=== PATIENT | female | born 1975 | race Caucasian/White ===

== ENCOUNTER 2018-08-11 21:36 | Emergency (ER) | payer BC, SELFPAY ==
[2018-08-11 23:47] LABS: Absolute Lymphocytes (CBC) 2.2 K/uL (0.7-4.9); Absolute Monocytes 0.3 K/uL (0.1-1.3); Absolute Neutrophil 3.8 K/uL (1.8-8.0); Basophils % 0.5 % (0-1.3); Eosinophils % 0.8 % (0-4.4); Hematocrit 35.5 % (36.0-45.0); Lymphocytes % 33.6 % (15.3-44.8); MPV 8.9 fL (7.6-11.3); Monocytes % 5.4 % (3.3-12.3); RBC Red Blood Cell Count 4.15 M/uL (3.86-4.86)
[2018-08-11 23:55] LABS: Potassium 3.5 mmol/L (3.5-5.1)
[2018-08-12 00:26] LABS: Urine Blood 2+ (NEG); Urine Glucose NEGATIVE (NEG); Urine Protein NEGATIVE (NEG); Urine Specific Gravity >1.030 (1.005-1.030); Urine pH 5.5 (5.0-7.0)
[2018-08-12] MEDS ORDERED: CEFTRIAXONE/SWI 1gm 1 GM/10 ML SYR ONE (00:26)
--- NOTE | 2018-08-12 00:29 | EDPHYS ---
Physician Documentation [facility] Name: Yuni Dahl Age: 42 yrs Sex: Female : 1975 Arrival Date: 08/11/2018 Time: 21:40 Bed 30 Private MD: Sean Morin E ED Physician Aftab Deleon HPI: 08/12 00:20 This 42 yrs old Female presents to ER via Ambulatory with complaints of katlyn Vaginal Bleeding. 00:20 The patient presents with vaginal bleeding that is. Onset: The symptoms/episode katlyn began/occurred just prior to arrival. Modifying factors: The symptoms are alleviated by nothing, the symptoms are aggravated by nothing. Associated signs and symptoms: The patient has no apparent associated signs or symptoms. Severity of symptoms: At their worst the symptoms were mild, in the emergency department the symptoms are unchanged. The patient is sexually active, reportedly has a single partner. 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 - Social history:: Smoking status: Patient/guardian denies using tobacco. - Ebola Screening: : Patient negative for fever greater than or equal to 101.5 degrees Fahrenheit, and additional compatible Ebola Virus Disease symptoms Patient denies exposure to infectious person Patient denies travel to an Ebola-affected area in the 21 days before illness onset No symptoms or risks identified at this time. - Family history:: not pertinent. ROS: 08/12 00:20 Constitutional: Negative for fever, chills, and weight loss, Eyes: Negative for injury, katlyn pain, redness, and discharge, ENT: Negative for injury, pain, and discharge, Neck: Negative for injury, pain, and swelling, Cardiovascular: Negative for chest pain, palpitations, and edema, Respiratory: Negative for shortness of breath, cough, wheezing, and pleuritic chest pain, Abdomen/GI: Negative for abdominal pain, nausea, vomiting, diarrhea, and constipation, Back: Negative for injury and pain, MS/Extremity: Negative for injury and deformity, Skin: Negative for injury, rash, and discoloration, Neuro: Negative for headache, weakness, numbness, tingling, and seizure, Psych: Negative for depression, anxiety, suicide ideation, homicidal ideation, and hallucinations, Allergy/Immunology: Negative for hives, rash, and allergies, Endocrine: Negative for neck swelling, polydipsia, polyuria, polyphagia, and marked weight changes, Hematologic/Lymphatic: Negative for swollen nodes, abnormal bleeding, and unusual bruising. : Positive for vaginal bleeding. Exam: 00:20 Constitutional: This is a well developed, well nourished patient who is awake, alert, katlyn and in no acute distress. Head/Face: Normocephalic, atraumatic. Eyes: Pupils equal round and reactive to light, extra-ocular motions intact. Lids and lashes normal. Conjunctiva and sclera are non-icteric and not injected. Cornea within normal limits. Periorbital areas with no swelling, redness, or edema. ENT: Nares patent. No nasal discharge, no septal abnormalities noted. Tympanic membranes are normal and external auditory canals are clear. Oropharynx with no redness, swelling, or masses, exudates, or evidence of obstruction, uvula midline. Mucous membranes moist. Neck: Trachea midline, no thyromegaly or masses palpated, and no cervical lymphadenopathy. Supple, full range of motion without nuchal rigidity, or vertebral point tenderness. No Meningismus. Chest/axilla: Normal chest wall appearance and motion. Nontender with no deformity. No lesions are appreciated. Cardiovascular: Regular rate and rhythm with a normal S1 and S2. No gallops, murmurs, or rubs. Normal PMI, no JVD. No pulse deficits. Respiratory: Lungs have equal breath sounds bilaterally, clear to auscultation and percussion. No rales, rhonchi or wheezes noted. No increased work of breathing, no retractions or nasal flaring. Abdomen/GI: Soft, non-tender, with normal bowel sounds. No distension or tympany. No guarding or rebound. No evidence of tenderness throughout. Back: No spinal tenderness. No costovertebral tenderness. Full range of motion. Skin: Warm, dry with normal turgor. Normal color with no rashes, no lesions, and no evidence of cellulitis. MS/ Extremity: Pulses equal, no cyanosis. Neurovascular intact. Full, normal range of motion. Neuro: Awake and alert, GCS 15, oriented to person, place, time, and situation. Cranial nerves II-XII grossly intact. Motor strength 5/5 in all extremities. Sensory grossly intact. Cerebellar exam normal. Normal gait. Psych: Awake, alert, with orientation to person, place and time. Behavior, mood, and affect are within normal limits. Vital Signs: 08/11 21:52 BP 109 / 96; Pulse 91; Resp 18; Temp 98(TE); Pulse Ox 99% on R/A; Weight 65.77 kg; ed1 Height 5 ft. 2 in. (157.48 cm); Pain 0/10; 23:44 BP 118 / 79 Sitting; Pulse 69; Resp 17 S; Pulse Ox 100% on R/A; ca1 23:45 BP 116 / 80 Supine; Pulse 73; Resp 17 S; Pulse Ox 100% on R/A; ca1 23:46 BP 117 / 87 Standing; Pulse 78; Resp 16 S; Pulse Ox 100% on R/A; ca1 23:49 BP 121 / 94 Standing; Pulse 74; Resp 16 S; Pulse Ox 100% on R/A; [facility] 08/12 00:30 BP 116 / 77; Pulse 76; Resp 17; Temp 98.2(O); Pulse Ox 100% on R/A; [facility] 08/11 21:52 Body Mass Index 26.52 (65.77 kg, 157.48 cm) ed1 MDM: 08/11 22:38 Patient medically screened. [facility] 08/12 00:25 Data reviewed: vital signs, nurses notes, lab test result(s), radiologic studies, [facility] ultrasound. 08/11 22:39 Order name: Abo/rh Typing [facility] 08/11 22:39 Order name: Basic Metabolic Panel; Complete Time: 00:04 [facility] 08/11 22:39 Order name: CBC with Diff; Complete Time: 00:04 [facility] 08/11 23:12 Order name: Urine Dipstick--Ancillary (enter results) [facility] 08/11 23:12 Order name: Urine --Ancillary (enter results) [facility] 08/12 00:08 Order name: Urine Culture [facility] 08/11 22:39 Order name: Urine Test (obtain specimen); Complete Time: 23:51 [facility] 08/11 22:39 Order name: IV Saline Lock; Complete Time: 22:55 [facility] 08/11 22:39 Order name: Labs collected and sent; Complete Time: 22:56 [facility] 08/11 22:39 Order name: NPO; Complete Time: 22:41 [facility] 08/11 22:39 Order name: Urine Dipstick-Ancillary (obtain specimen); Complete Time: 23:51 [facility] 08/11 22:39 Order name: US Transvaginal Study (Probe) [facility] 08/11 22:40 Order name: Orthostatics; Complete Time: 23:51 [facility] Administered Medications: 00:16 Drug: Rocephin - (cefTRIAXone) 1 grams Route: IVPB; Infused Over: 30 mins; Site: right ca1 antecubital; 00:50 Follow up: Response: No adverse reaction; IV Status: Completed infusion; IVP per [facility] pharmacy protocol Disposition: 08/12/18 00:29 Discharged to Home. Impression: Abnormal uterine and vaginal bleeding, unspecified, Other ovarian cysts - 5 cm septated. - Condition is Stable. - Discharge Instructions: Abnormal Uterine Bleeding, Dysmenorrhea, Ovarian Cyst, Urinary Tract Infection, Adult, Dysfunctional Uterine Bleeding, Urinary Tract Infection, Adult, [id number], Ovarian Cyst, [id number], Abnormal Uterine Bleeding, Uaui-be-Yqjo, Dysmenorrhea, [id number]-[id number]. - Prescriptions for Cipro 250 mg Oral Tablet - take 1 tablet by ORAL route every 12 hours; 14 tablet. - Medication Reconciliation Form, Thank You Letter, Antibiotic Education, Prescription Opioid Use form. - Follow up: Sean Morin MD; When: 2 - 3 days; Reason: Recheck today's complaints, Continuance of care, Re-evaluation by your physician. Follow up: Private Physician; When: 2 - 3 days; Reason: Recheck today's complaints, Re-evaluation by your physician. - Problem is new. - Symptoms have improved. Signatures: Dispatcher [employer] EDAftab Davey MD MD cha Riggs, Erika RN RN ed1 Rosa Pugh RN RN ca1 Corrections: (The following items were deleted from the chart) 00:57 00:29 08/12/2018 00:29 Discharged to Home. Impression: Abnormal uterine and vaginal ca1 bleeding, unspecified; Other ovarian cysts - 5 cm septated. Condition is Stable. Forms are Medication Reconciliation Form, Thank You Letter, Antibiotic Education, Prescription Opioid Use. Follow up: Sean Morin; When: 2 - 3 days; Reason: Recheck today's complaints, Continuance of care, Re-evaluation by your physician. Follow up: Private Physician; When: 2 - 3 days; Reason: Recheck today's complaints, Re-evaluation by your physician. Problem is new. Symptoms have improved. katlyn
--- NOTE | 2018-08-12 00:29 | ER ---
Nurse's Notes [facility] Name: Yuni Dahl Age: 42 yrs Sex: Female : 1975 Arrival Date: 08/11/2018 Time: 21:40 Bed 30 Private MD: Sean Morin E Diagnosis: Abnormal uterine and vaginal bleeding, unspecified;Other ovarian cysts-5 cm septated Presentation: 08/11 21:51 Presenting complaint: Patient states: I have been bleeding since May. I was just at ed1 [facility] and I just gushed blood all down my legs. Transition of care: patient was not received from another setting of care. Onset of symptoms was May 2018. Risk Assessment: Do you want to hurt yourself or someone else? Patient reports no desire to harm self or others. Initial Sepsis Screen: Does the patient meet any 2 criteria? No. Patient's initial sepsis screen is negative. Does the patient have a suspected source of infection? No. Patient's initial sepsis screen is negative. Care prior to arrival: None. 21:51 Method Of Arrival: Ambulatory ed1 21:51 Acuity: CHIDI 3 ed1 Triage Assessment: 21:52 General: Appears uncomfortable, Behavior is calm, cooperative. Pain: Denies pain. : ed1 Reports vaginal bleeding that is bright red, with clots, heavy flow since May. 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 - Social history:: Smoking status: Patient/guardian denies using tobacco. - Ebola Screening: : Patient negative for fever greater than or equal to 101.5 degrees Fahrenheit, and additional compatible Ebola Virus Disease symptoms Patient denies exposure to infectious person Patient denies travel to an Ebola-affected area in the 21 days before illness onset No symptoms or risks identified at this time. - Family history:: not pertinent. Screenin:20 Abuse screen: Denies threats or abuse. Denies injuries from another. Nutritional ca1 screening: No deficits noted. Tuberculosis screening: No symptoms or risk factors identified. Fall Risk None identified. Assessment: 22:20 General: Appears in no apparent distress. comfortable, Behavior is calm, cooperative, ca1 appropriate for age. Pain: Complains of pain in back, right lower quadrant and left lower quadrant Pain currently is 1 out of 10 on a pain scale. Quality of pain is described as "not pain pain but a discomfort" Pain began 30 min ago. Is continuous. Neuro: Level of Consciousness is awake, alert, obeys commands, Oriented to person, place, time, situation. Cardiovascular: Heart tones S1 S2 present Capillary refill < 3 seconds Patient's skin is warm and dry. Respiratory: Airway is patent Respiratory effort is even, unlabored, Respiratory pattern is regular, symmetrical, Breath sounds are clear bilaterally. GI: Abdomen is round non-distended, Bowel sounds present X 4 quads. Abd is soft and non tender X 4 quads. : Urine is clear, Reports vaginal bleeding that is bright red, with clots, heavy flow since just now but has had moderate vaginal bleeding since May. Has her check up pn June with her doctor. Is scheduled for a vaginal ultrasound on the but had problems with insurance, as reported by pt. EENT: No deficits noted. No signs and/or symptoms were reported regarding the EENT system. Derm: Skin is intact, is healthy with good turgor, Skin is pink, warm \\T\\ dry. Musculoskeletal: Circulation, motion, and sensation intact. Capillary refill < 3 seconds, Range of motion: intact in all extremities. 23:15 Reassessment: Pt taken to radiology for ultrasound. ca1 23:20 Reassessment: Patient appears in no apparent distress at this time. Patient and/or ca1 family updated on plan of care and expected duration. Pain level reassessed. Patient is alert, oriented x 3, equal unlabored respirations, skin warm/dry/pink. 08/12 00:30 Reassessment: Patient appears in no apparent distress at this time. Patient is alert, ca1 oriented x 3, equal unlabored respirations, skin warm/dry/pink. Vital Signs: 08/11 21:52 BP 109 / 96; Pulse 91; Resp 18; Temp 98(TE); Pulse Ox 99% on R/A; Weight 65.77 kg; ed1 Height 5 ft. 2 in. (157.48 cm); Pain 0/10; 23:44 BP 118 / 79 Sitting; Pulse 69; Resp 17 S; Pulse Ox 100% on R/A; ca1 23:45 BP 116 / 80 Supine; Pulse 73; Resp 17 S; Pulse Ox 100% on R/A; ca1 23:46 BP 117 / 87 Standing; Pulse 78; Resp 16 S; Pulse Ox 100% on R/A; ca1 23:49 BP 121 / 94 Standing; Pulse 74; Resp 16 S; Pulse Ox 100% on R/A; ca1 08/12 00:30 BP 116 / 77; Pulse 76; Resp 17; Temp 98.2(O); Pulse Ox 100% on R/A; ca1 08/11 21:52 Body Mass Index 26.52 (65.77 kg, 157.48 cm) ed1 ED Course: 08/11 21:40 Patient arrived in ED. am2 21:41 Sean Morin MD is Private Physician. am2 21:52 Triage completed. ed1 21:52 Arm band placed on right wrist. ed1 22:20 Patient has correct armband on for positive identification. Placed in gown. Bed in low ca1 position. Call light in reach. Side rails up X 1. Pulse ox on. NIBP on. Warm blanket given. 22:25 Rosa Pugh, WILLARD is Primary Nurse. ca1 22:38 Aftab Deleon MD is Attending Physician. katlyn 22:42 Patient taken to ultrasound. jordi 23:28 US Transvaginal Study (Probe) In Process Unspecified. EDMS 08/12 00:27 Sean Morin MD is Referral Physician. katlyn 00:50 No provider procedures requiring assistance completed. IV discontinued, intact, ca1 bleeding controlled, No redness/swelling at site. Pressure dressing applied. Administered Medications: 00:16 Drug: Rocephin - (cefTRIAXone) 1 grams Route: IVPB; Infused Over: 30 mins; Site: right ca1 antecubital; 00:50 Follow up: Response: No adverse reaction; IV Status: Completed infusion; IVP per ca1 pharmacy protocol Outcome: 00:29 Discharge ordered by . katlyn 00:50 Discharged to home ambulatory. ca1 00:50 Condition: stable 00:50 Discharge instructions given to patient, Instructed on discharge instructions, follow up and referral plans. medication usage, Demonstrated understanding of instructions, follow-up care, medications, Prescriptions given X 1. 00:57 Patient left the ED. ca1 Addendum: 08/15/2018 07:20 Addendum: Culture Results: Positive urine culture. No further action required. Bacteria s s sensitive to prescribed antibiotic. Signatures: Dispatcher [employer] EDMS Aftab Deleon MD MD cha Smirch, Shelby, RN RN ss Nohemi Alvarez RN RN ed1 Antonio Bermudez jd, Amanda am2 Acob, Cheryl, RN RN ca1 Corrections: (The following items were deleted from the chart) 08/12 00:59 00:57 Response: No adverse reaction; IV Status: Completed infusion; IVP per pharmacy ca1 protocol ca1
[2018-08-12 02:25] VITALS: O2SAT 100
[2018-08-12 02:31] VITALS: BP 116/77; TEMP 98.2
--- NOTE | 2018-08-12 08:29 | RAD REPORT ---
EXAM DESCRIPTION: US - Transvaginal Study Probe - 08/11/2018 11:28 pm CLINICAL HISTORY: ABD PAIN Pelvic pain. COMPARISON: No comparisons FINDINGS: The uterus is normal in size, shape and echotexture. The uterus measures 10.7 x 7.2 x 5.6 cm. The endometrial stripe measures 19 mm, mildly thickened. Both ovaries are normal in size, shape and echotexture. The right ovary measures 6.2 x 4.5 x 4.5 cm. The left ovary measures 3.7 x 1.7 x 1.4 cm. Septated right ovarian cyst is present measuring 5.7 x 4.0 x 3.4 cm. Normal Doppler blood flow was demonstrated to both ovaries. Mild pelvic ascites. IMPRESSION: Septated right ovarian cyst measuring 5.7 x 4.0 cm.Otherwise, no acute process.
== END 2018-08-12 00:57 | disposition home or self-care (01) ==
LOC: ER 21:36
DX: N83.291 Other ovarian cyst, right side (principal); M32.9 Systemic lupus erythematosus, unspecified
CPT/HCPCS: 36415; 76830; 80048; 81003; 81025; 85025; 86900; 86901; 87077; 87086; 87088; 87186; 96365; 99284; J0696

== ENCOUNTER 2020-05-27 08:59 | Emergency (ER) | payer OTHER ==
[2020-05-27] MEDS ORDERED: MORPHINE 2 MG/ML SYR ONE (09:59)
[2020-05-27] MEDS ORDERED: MORPHINE 4 MG/ML SYR ONE (10:00)
[2020-05-27] MEDS ORDERED: ONDANSETRON 4 MG (ODT) TAB ONE (10:01)
--- NOTE | 2020-05-27 10:53 | ER ---
Nurse's Notes [facility] Name: Yuni Dahl Age: 44 yrs Sex: Female : 1975 Arrival Date: 05/27/2020 Time: 09:00 Bed 8 Private MD: Sean Morin E Diagnosis: Other chronic pain Presentation: 05/27 09:12 Chief complaint: Patient states: "I was recently hospitalized at [facility] because of jd3 my spreading shingles into my right eye. I also had a spinal tap done that started to show abnormalities too. with the spread of the virus, it gave me Trigeminal Meralgia pain. I was prescribed pain medication including PO morphine, but last night my family member accidently spilt the water over my medications and now I can't get this pain under control.". Coronavirus screen: At this time, the client does not indicate any symptoms associated with coronavirus-19. Ebola Screen: Patient negative for fever greater than or equal to 101.5 degrees Fahrenheit, and additional compatible Ebola Virus Disease symptoms. Initial Sepsis Screen: Does the patient meet any 2 criteria? No. Patient's initial sepsis screen is negative. Does the patient have a suspected source of infection? No. Patient's initial sepsis screen is negative. Risk Assessment: Do you want to hurt yourself or someone else? Patient reports no desire to harm self or others. Onset of symptoms was May 27, 2020. 09:12 Method Of Arrival: Ambulatory jd3 09:12 Acuity: CHIDI 3 jd3 Triage Assessment: 11:04 Pain: Also complains of. 11:04 Headache History: The patient has had previous headaches and this one is similar to previous episodes. Historical: - Allergies: :15 No Known Allergies; bw - Home Meds: 09:18 Plaquenil Oral [Active]; hydroxychloroquine oral oral [Active]; methotrexate sodium jd3 Oral [Active]; - PMHx: :15 Glaucoma; Lupus; Rheumatoid Arthritis; bw - PSHx: :18 ; Appendectomy; jd3 - Immunization history:: Adult Immunizations up to date. - Social history:: Smoking status: Patient denies any tobacco usage or history of. Screenin:15 Abuse screen: Denies threats or abuse. Nutritional screening: No deficits noted. bw Tuberculosis screening: No symptoms or risk factors identified. Fall Risk None identified. Assessment: 09:12 General: Appears distressed, uncomfortable, Behavior is cooperative, anxious, crying. bw Pain: Complains of pain in right eye, right cheek, right ear, right yazidism and right jaw. Neuro: No deficits noted. Reports dizziness, headache photophobia Denies difficulty swallowing. Cardiovascular: No deficits noted. Respiratory: No deficits noted. GI: No deficits noted. : No deficits noted. EENT: No deficits noted. Derm: Reports burning, in right eye from shingles. Musculoskeletal: No deficits noted. Vital Signs: 09:15 BP 152 / 127; Pulse 115; Resp 20; Pulse Ox 100% on R/A; Pain 8/10; bw 09:18 Temp 98.4(O); Weight 65.77 kg (R); Height 5 ft. 2 in. (157.48 cm) (R); jd3 11:03 BP 156 / 110; Pulse 100; Resp 16; Pulse Ox 98% ; iw 09:18 Body Mass Index 26.52 (65.77 kg, 157.48 cm) jd3 Dahiana Coma Score: 09:33 Eye Response: spontaneous(4). Verbal Response: oriented(5). Motor Response: obeys [facility] commands(6). Total: 15. ED Course: 09:00 Patient arrived in ED. am2 09:01 Sean Morin MD is Private Physician. am2 09:03 [facility] Perez [facility]. jmm 09:03 Bernard Morrison MD is Attending Physician. jmm 09:05 Asael Sandy, RN is Primary Nurse. bp 09:15 Patient has correct armband on for positive identification. Call light in reach. Side bw rails up X2. Pulse ox on. NIBP on. Warm blanket given. 09:15 No provider procedures requiring assistance completed. bw 09:16 Triage completed. jd3 09:17 Primary Nurse role handed off by Asael Sandy, WILLARD bw 09:17 Amanda Canales, WILLARD is Primary Nurse. bw 09:19 Arm band placed on. jd3 10:53 Bob Negrete MD is Referral Physician. jmm 11:03 Patient did not have IV access during this emergency room visit. iw Administered Medications: 09:49 Drug: morphine 6 mg Route: IM; Site: right deltoid; 09:49 Drug: Zofran (Ondansetron) 4 mg Route: PO; Outcome: 10:53 Discharge ordered by . aysha 11:03 Discharged to home ambulatory, with family. iw 11:03 Condition: good 11:03 Discharge instructions given to patient, Instructed on discharge instructions, follow up and referral plans. medication usage, Demonstrated understanding of instructions, follow-up care, medications, Prescriptions given X 1. 11:13 Patient left the ED. iw Signatures: Jaxson Perez PA PA jmm Williams, Irene, RN RN iw Merari Acosta Jonathon, RN RN jAsael Alfonso RN RN bp Amanda Canales RN RN
--- NOTE | 2020-05-27 10:54 | EDPHYS ---
Physician Documentation [facility] Name: Yuni Dahl Age: 44 yrs Sex: Female : 1975 Arrival Date: 05/27/2020 Time: 09:00 Bed 8 Private MD: Sean Morin E ED Physician Bernard Morrison HPI: 05/27 09:27 This 44 yrs old Female presents to ER via Ambulatory with complaints of jmm Headache, Eye Pain. 09:27 The patient complains of pain to the forehead, right eye, right cheek, right ear, right jmm moravian, right jaw, right temporal area and right zygomatic area. The patient describes the headache as constant. Onset: The symptoms/episode began/occurred 2 week(s) ago. Associated signs and symptoms: Pertinent positives: Photophobia. Patient reports recent dx and hospitalization with shingles and trigeminal neuralgia that spread to her brain. She was DC with Rx of Acyclovir and Morphine PO. She reports her mother poured water on her morphine tablets and is unable to control her pain. She reports taking her morphine today once and her acyclovir. . Historical: - Allergies: 09:15 No Known Allergies; bw - Home Meds: 09:18 Plaquenil Oral [Active]; hydroxychloroquine oral oral [Active]; methotrexate sodium jd3 Oral [Active]; - PMHx: 09:15 Glaucoma; Lupus; Rheumatoid Arthritis; bw - PSHx: 09:18 ; Appendectomy; jd3 - Immunization history:: Adult Immunizations up to date. - Social history:: Smoking status: Patient denies any tobacco usage or history of. ROS: 09:29 Cardiovascular: Negative for chest pain, palpitations, and edema, Respiratory: Negative jmm for shortness of breath, cough, wheezing, and pleuritic chest pain, Abdomen/GI: Negative for abdominal pain, nausea, vomiting, diarrhea, and constipation, MS/Extremity: Negative for injury and deformity. 09:29 Eyes: Positive for pain, photophobia, redness. 09:29 Skin: Positive for erythema, of the face. 09:29 Neuro: Positive for headache, of the face. Exam: 09:30 Neck: Trachea midline, Supple Chest/axilla: Normal chest wall appearance and motion. jmm Cardiovascular: Regular rate and rhythm. No edema appreciated Respiratory: Normal respirations, no respiratory distress appreciated Abdomen/GI: Non distended, soft MS/ Extremity: Moves all extremities, no obvious deformities appreciated, no edema noted to the lower extremities Neuro: Awake and alert, normal gait 09:30 Eyes: Sclera: redness, Lids and lashes: erythema, on the right, Visual adorno: are intact. 09:30 Skin: Redness and tenderness present on Right side of face. Skin intact. . Vital Signs: 09:15 BP 152 / 127; Pulse 115; Resp 20; Pulse Ox 100% on R/A; Pain 8/10; bw 09:18 Temp 98.4(O); Weight 65.77 kg (R); Height 5 ft. 2 in. (157.48 cm) (R); jd3 11:03 BP 156 / 110; Pulse 100; Resp 16; Pulse Ox 98% ; iw 09:18 Body Mass Index 26.52 (65.77 kg, 157.48 cm) jd3 [place] Coma Score: 09:33 Eye Response: spontaneous(4). Verbal Response: oriented(5). Motor Response: obeys [facility] commands(6). Total: 15. MDM: 09:22 Patient medically screened. [facility] 09:33 Data reviewed: vital signs, nurses notes. Data interpreted: child monitor: rate is [facility] 115 beats/min, Pulse oximetry: on room air is 100 %. Interpretation: normal. 10:50 ED course: Condition is chronic. Pain is relieved after IM morphine. Patient is advised [facility] to follow up with neuro and pain management. Patient is otherwise given strict return precautions. . Administered Medications: 09:49 Drug: morphine 6 mg Route: IM; Site: right deltoid; bw 09:49 Drug: Zofran (Ondansetron) 4 mg Route: PO; bw Disposition: 16:48 Co-signature as Attending Physician, Bernard Morrison MD I agree with the assessment and kdr plan of care. Disposition: 05/27/20 10:53 Discharged to Home. Impression: Other chronic pain. - Condition is Stable. - Discharge Instructions: Chronic Pain. - Prescriptions for Tramadol 50 mg Oral Tablet - take 1 tablet by ORAL route every 8 hours as needed; 20 tablet. - Medication Reconciliation Form, Thank You Letter, Antibiotic Education, Prescription Opioid Use form. - Follow up: Bob Negrete MD; When: 2 - 3 days; Reason: Recheck today's complaints, Continuance of care, Re-evaluation by your physician. Signatures: Bernard Morrison MD MD kdr Mickail, Joel, PA PA jmm Williams, Irene, Reilly Fair RN, RN RN jd3 Canales, WILLARD Patel RN bw Corrections: (The following items were deleted from the chart) 11:13 10:53 05/27/2020 10:53 Discharged to Home. Impression: Other chronic pain. Condition is iw Stable. Forms are Medication Reconciliation Form, Thank You Letter, Antibiotic Education, Prescription Opioid Use. Follow up: Bob Negrete; When: 2 - 3 days; Reason: Recheck today's complaints, Continuance of care, Re-evaluation by your physician. juliana
[2020-05-27 19:53] VITALS: TEMP 98.4
[2020-05-27 19:54] VITALS: BP 156/110; O2SAT 98
== END 2020-05-27 11:13 | disposition home or self-care (01) ==
LOC: ER 08:59
DX: G89.29 Other chronic pain (principal)
CPT/HCPCS: 96372; 99283; J2270